=== PATIENT | male | born 1990 | race Caucasian/White ===

== ENCOUNTER 2018-12-26 18:29 | Emergency (ER) | payer OTHER ==
[~2018-12-26] VITALS: Ht 185.4 cm; Wt 99.8 kg
[2018-12-26] MEDS ORDERED: MOBIC15 MG PO (21:20)
[2018-12-26] MEDS ORDERED: ZANAFLEX4 MG PO (21:20)
[2018-12-26 21:30] VITALS: BP 132/77
== END 2018-12-26 21:30 | disposition home or self-care (01) ==
LOC: ER 18:29
DX: S29.012A Strain of muscle and tendon of back wall of thorax, initial encounter (principal); S60.212A Contusion of left wrist, initial encounter; F17.210 Nicotine dependence, cigarettes, uncomplicated; V43.62XA Car passenger injured in collision with other type car in traffic accident, initial encounter; Y93.89 Activity, other specified; Y92.89 Other specified places as the place of occurrence of the external cause; Y99.8 Other external cause status